=== PATIENT | male | born 1990 | race African-American/Black ===

== ENCOUNTER 2021-08-02 21:52 | Emergency (ER) | payer SELFPAY ==
[~2021-08-02] VITALS: Ht 172.7 cm; Wt 66.0 kg
[2021-08-02 22:26] VITALS: BP 125/61
== END 2021-08-03 00:20 | disposition left against medical advice (07) ==
LOC: ER 21:52
DX: H57.89 Other specified disorders of eye and adnexa (principal); Z53.21 Procedure and treatment not carried out due to patient leaving prior to being seen by health care provider

== ENCOUNTER 2022-01-30 09:39 | Emergency (ER) | payer MEDICAID ==
[~2022-01-30] VITALS: Ht 172.7 cm; Wt 67.0 kg
[2022-01-30 09:52] VITALS: BP 132/78
[2022-01-30 11:50] LABS: CLARITY URINE CLEAR (CLEAR); COLOR URINE YELLOW (YELLOW); KETONES URINE NEGATIVE (NEGATIVE); LEUKOCYTE ESTERASE URINE NEGATIVE (NEGATIVE); NITRITE URINE NEGATIVE (NEGATIVE); OCCULT BLOOD URINE 2+ (NEGATIVE); PROTEIN URINE NEGATIVE (NEGATIVE); SPECIFIC GRAVITY URINE 1.009 (1.005-1.030); UROBILINOGEN URINE 0.2 E.U./dL (0.2-1.0)
== END 2022-01-30 12:50 | disposition home or self-care (01) ==
LOC: ER 09:39
DX: R36.1 Hematospermia (principal)
CPT/HCPCS: 76870; 81003; 93976; 99284